=== PATIENT | male | born 1950 | race Caucasian/White ===

== ENCOUNTER 2021-04-18 16:11 | Emergency (ER) | payer MEDICARE, OTHER | END 2021-04-18 20:45 | disposition home or self-care (01) | LOC: FER 16:11 | DX: I10 Essential (primary) hypertension (principal); E11.9 Type 2 diabetes mellitus without complications; Z79.84 Long term (current) use of oral hypoglycemic drugs; Z87.891 Personal history of nicotine dependence; Z79.899 Other long term (current) drug therapy | CPT/HCPCS: J3490 ==

== ENCOUNTER → 2021-05-09 | Day surgery (SDC) | payer MEDICARE, OTHER ==
[~2021-05-09] VITALS: Ht 172.7 cm; Wt 90.7 kg
[~2021-05-09] MED LIST: 3IN1 COMMODE; AMLODIPINE BESYL5 MG PO; ASPIRIN EC81 MG PO; ATORVASTATIN CA10 MG PO; BLACK ELDERBER1 EACH PO; LISINOPRIL10 MG PO; METFORMIN HCL500 M3 PO
== END | disposition home or self-care (01) ==
LOC: FAS 08:20
DX: Z12.11 Encounter for screening for malignant neoplasm of colon (principal); D12.3 Benign neoplasm of transverse colon; K57.30 Diverticulosis of large intestine without perforation or abscess without bleeding; E11.21 Type 2 diabetes mellitus with diabetic nephropathy; Z86.010 Personal history of colon polyps; Z90.49 Acquired absence of other specified parts of digestive tract; Z79.82 Long term (current) use of aspirin; Z98.52 Vasectomy status; Z72.89 Other problems related to lifestyle; Z87.891 Personal history of nicotine dependence
CPT/HCPCS: 82962; J2704; J7120